=== PATIENT | female | born 1975 | race Caucasian/White ===

== ENCOUNTER 2023-10-28 19:40 | Emergency (ER) | payer OTHER ==
[~2023-10-28] VITALS: Ht 167.6 cm; Wt 81.8 kg
[2023-10-28 19:57] VITALS: BP 114/74; TEMP 98.2
[2023-10-28] MEDS ORDERED: Sulfamethoxazole/Trimethoprim 800-160 MG TAB PO ONE (21:00)
[2023-10-28] MEDS ORDERED: BACTRIM DS 8001 TAB PO (21:15)
[2023-10-28 21:23] VITALS: PULSE 82
== END 2023-10-28 21:23 | disposition home or self-care (01) ==
LOC: COL.ER 19:40
DX: S80.261A Insect bite (nonvenomous), right knee, initial encounter (principal); W57.XXXA Bitten or stung by nonvenomous insect and other nonvenomous arthropods, initial encounter